=== PATIENT | female | born 1950 | race Caucasian/White ===

== ENCOUNTER 2016-05-06 11:09 | Emergency (ER) | payer MEDICARE, OTHER ==
[~2016-05-06] VITALS: Ht 157.5 cm; Wt 86.0 kg
[~2016-05-06 11:09] MED LIST: ALBU0.086 INH; ALBU1AER INH; COLE625 PO; MEDR4PAK3 PO; PROZ20CA11 PO; ZITH250T PO
[2016-05-06 11:41] VITALS: BP 145/81; PULSE 101; RESP 16; TEMP 98.7; O2SAT 99
[2016-05-06] MEDS ORDERED: SODIUM CHLOR 0.9% 1000 ML INJ 1,000 ML IV SCH (12:18)
[2016-05-06] MEDS ORDERED: WELC625T2 PO (12:21)
[2016-05-06] MEDS ORDERED: ALBUAER3 INH (12:21)
[2016-05-06] MEDS ORDERED: PROZ20CA11 PO (12:21)
--- NOTE | 2016-05-06 12:25 | PD ---
HPI Chief Complaint: Abdominal Pain Time Seen by Provider: 12:06 Travel History International Travel<30 days: No Contact w/Intl Traveler<30days: No Traveled to known affect area: No History of Present Illness HPI 65-year-old female complains of low back pain, right low quadrant abdominal pain and nausea and abdominal bloating. Patient states that symptoms started about 3 weeks ago. Patient states that she has nausea but no vomiting or diarrhea. Patient denies any dysuria or frequency. Patient denies any vaginal discharge or bleeding. Patient states that she status post cholecystectomy. Patient has history of COPD and quit smoking about 5 weeks ago. Patient denies any fever chills. Patient denies any weakness or numbness of lower extremity. On a scale of 1-10 the pain is a 5. Patient states that she was seen by personal physician last week and diagnosis with possible UTI. Patient was given prescription for Cipro which she took for 2 days. Patient states that she was advised by her physician to stop taking Cipro. PFSH Past Medical History Asthma: Yes Depression: Yes High Cholesterol: Yes COPD: Yes Diminished Hearing: No GERD: Yes Respiratory: Yes (copd) Tetanus Vaccination: > 5 Years ?: Not Menopausal: Yes : 2 Para: 2 Past Surgical History Cholecystectomy: Yes (2012) Ear Surgery: Yes (BILATERAL EAR TUBES PLACED 09/22/14) Genitourinary Surgery: Yes (BLADDER TUCK 2012) Tonsillectomy: Yes Social History Alcohol Use: Yes (SOCIALLY) Tobacco Use: No (1 PK/WEEK) Substance Use: No Allergies-Medications (Allergen,Severity, Reaction): Coded Allergies: Novocain (Unverified Allergy, Unknown, 05/06/16) CHILD Reported Meds & Prescriptions Reported Meds & Active Scripts Active Reported Proair Hfa 8.5 GM Inh (Albuterol Sulfate) 90 Mcg/Act Aer 2 Puff INH Q4-6H PRN 108 mcg/actuation Prozac (Fluoxetine HCl) 20 Mg Cap 20 Mg PO DAILY Welchol (Colesevelam HCl) 625 Mg Tab 3,750 Mg PO DAILY Review of Systems General / Constitutional: No: Fever Eyes: No: Visual changes HENT: No: Headaches Cardiovascular: No: Chest Pain or Discomfort Respiratory: No: Shortness of Breath Gastrointestinal: Positive: Nausea, Abdominal Pain Genitourinary: No: Dysuria Musculoskeletal: No: Pain Skin: No Rash Neurologic: No: Weakness Psychiatric: No: Depression Endocrine: No: Polydipsia Hematologic/Lymphatic: No: Easy Bruising Physical Exam Narrative GENERAL: Well-nourished, well-developed patient. SKIN: Warm and dry. HEAD: Normocephalic. EYES: No scleral icterus. No injection or drainage. NECK: Supple, trachea midline. No JVD or lymphadenopathy. CARDIOVASCULAR: Regular rate and rhythm without murmurs, gallops, or rubs. RESPIRATORY: Breath sounds equal bilaterally. No accessory muscle use. Mild expiratory wheezes. GASTROINTESTINAL: Abdomen soft, nondistended. Patient has mild tenderness on palpation right low quadrant of the abdomen. No rebound tenderness. No mass. MUSCULOSKELETAL: No cyanosis, or edema. BACK: Mild tenderness on palpation lumbar area, without obvious deformity. No CVA tenderness. Neurologic exam normal. Data Data Last Documented VS Vital Signs Date Time Temp Pulse Resp B/P Pulse Ox O2 Delivery O2 Flow Rate FiO2 05/06/16 13:45 97 16 134/71 94 Room Air 05/06/16 11:41 98.7 Orders Complete Blood Count With Diff (05/06/16 12:18) Comprehensive Metabolic Panel (05/06/16 12:18) Lipase (05/06/16 12:18) Prothrombin Time / Inr (Pt) (05/06/16 12:18) Act Partial Throm Time (Ptt) (05/06/16 12:18) Urinalysis - C+S If Indicated (05/06/16 12:18) Ct Abd/Pel W Iv Contrast(Rout) (05/06/16 12:18) Iv Access Insert/Monitor (05/06/16 12:18) Ecg Monitoring (05/06/16 12:18) Oximetry (05/06/16 12:18) Ondansetron Inj (Zofran Inj) (05/06/16 12:30) Sodium Chlor 0.9% 1000 Ml Inj (Ns 1000 M (05/06/16 12:18) Urine Culture (05/06/16 12:30) Iohexol 350 Inj (Omnipaque 350 Inj) (05/06/16 13:26) Labs Laboratory Tests Test 05/06/16 12:30 White Blood Count 8.9 TH/MM3 Red Blood Count 4.27 MIL/MM3 Hemoglobin 12.8 GM/DL Hematocrit 38.0 % Mean Corpuscular Volume 89.0 FL Mean Corpuscular Hemoglobin 30.0 PG Mean Corpuscular Hemoglobin 33.8 % Concent Red Cell Distribution Width 12.1 % Platelet Count 382 TH/MM3 Mean Platelet Volume 6.8 FL Neutrophils (%) (Auto) 87.8 % Lymphocytes (%) (Auto) 8.1 % Monocytes (%) (Auto) 3.6 % Eosinophils (%) (Auto) 0.1 % Basophils (%) (Auto) 0.4 % Neutrophils # (Auto) 7.9 TH/MM3 Lymphocytes # (Auto) 0.7 TH/MM3 Monocytes # (Auto) 0.3 TH/MM3 Eosinophils # (Auto) 0.0 TH/MM3 Basophils # (Auto) 0.0 TH/MM3 CBC Comment DIFF FINAL Differential Comment Prothrombin Time 10.0 SEC Prothromb Time International 0.9 RATIO Ratio Activated Partial 23.6 SEC Thromboplast Time Urine Collection Type VOIDED Urine Color YELLOW Urine Turbidity CLEAR Urine pH 5.5 Urine Specific [place] 1.020 Urine Protein NEG mg/dL Urine Glucose (UA) 500 mg/dL Urine Ketones NEG mg/dL Urine Occult Blood NEG Urine Nitrite NEG Urine Bilirubin NEG Urine Leukocyte Esterase NEG Urine RBC 0-3 /hpf Urine WBC 3-5 /hpf Urine WBC Clumps RARE Urine Squamous Epithelial 0-5 /hpf Cells Urine Bacteria RARE /hpf Microscopic Urinalysis Comment CULTURE INDICATED Sodium Level 143 MEQ/L Potassium Level 4.3 MEQ/L Chloride Level 109 MEQ/L Carbon Dioxide Level 24.8 MEQ/L Anion Gap 9 MEQ/L Blood Urea Nitrogen 13 MG/DL Creatinine 0.81 MG/DL Estimat Glomerular Filtration 71 ML/MIN Rate Random Glucose 183 MG/DL Calcium Level 9.1 MG/DL Total Bilirubin 0.2 MG/DL Aspartate Amino Transf 12 U/L (AST/SGOT) Alanine Aminotransferase 26 U/L (ALT/SGPT) Alkaline Phosphatase 81 U/L Total Protein 7.3 GM/DL Albumin 3.6 GM/DL Lipase 142 U/L [facility] Medical Decision Making Medical Screen Exam Complete: Yes Emergency Medical Condition: Yes Interpretation(s) [address] scan abdomen pelvis negative acute pathology. CBC within normal limit. WBC 8.9 with 87 neutrophil. CMP within normal limit. UA positive WBC and bacteria. Differential Diagnosis Differential diagnoses including UTI, pyelonephritis, nephrolithiasis, colitis, appendicitis, ovarian cyst, ovarian torsion. Narrative Course 65-year-old female with right low quadrant abdominal pain, bloating, nausea and low back pain. Normal saline solution 125 cc an hour. Diagnosis Primary Impression: UTI (urinary tract infection) Qualified Code: N30.00 - Acute cystitis without hematuria Additional Impression: Abdominal colic Patient Instructions: General Instructions Additional Instructions: Take medications as directed. Follow-up with personal physician. Return if worse. Med/Other Pt SpecificInfo: Prescription(s) given Scripts Dicyclomine (Bentyl)20 Mg Tab20 Mg PO TID #21 TAB Ref 0 Prov:Gerardo Harrington MD 05/06/16 Sulfamethoxazole-Trimethoprim (Bactrim DS)800-160 Mg Tab1 Tab PO BID #14 TAB Prov:Gerardo Harrington MD 05/06/16 Disposition: 01 DISCHARGE HOME Condition: Stable Gerardo Harrington MD May 06, 2016 12:25
[2016-05-06] MEDS ORDERED: ONDANSETRON HCL 4 MG/2 ML VIAL IVP ONE (12:30)
[2016-05-06 12:37] VITALS: RESP 16; O2SAT 94
[2016-05-06 12:44] VITALS: BP 135/70; PULSE 101; RESP 16; O2SAT 97
[2016-05-06 12:50] LABS: AUTOMATED NEUTROPHIL # 7.9 TH/MM3 (1.8-7.7); BASOPHIL % 0.4 % (0.0-2.0); EOSINOPHIL % 0.1 % (0.0-4.0); HEMO FLAGS DIFF FINAL; LYMPH % 8.1 % (9.0-44.0); LYMPHOCYTE # 0.7 TH/MM3 (1.0-4.8); MEAN CORPUSCULAR HGB CONC 33.8 % (32.0-36.0); MONO % 3.6 % (0.0-8.0); NEUT % 87.8 % (16.0-70.0); PLATELET COUNT 382 TH/MM3 (150-450); RED BLOOD COUNT 4.27 MIL/MM3 (4.00-5.30); RED CELL DISTRIBUTION WIDTH 12.1 % (11.6-17.2); WHITE BLOOD COUNT 8.9 TH/MM3 (4.0-11.0)
[2016-05-06 12:51] LABS: BLOOD, URINE NEG (NEG); GLUCOSE,URINE 500 mg/dL (NEG); KETONE, URINE NEG (NEG); NITRITE,URINE NEG (NEG); PH, URINE 5.5 (5.0-8.5)
[2016-05-06 12:58] LABS: METHOD OF COLLECTION VOIDED; URINE COLOR YELLOW (YELLW/STRAW)
[2016-05-06 12:59] LABS: CHLORIDE 109 MEQ/L (98-107); POTASSIUM 4.3 MEQ/L (3.5-5.1); RBC, URINE 0-3 /hpf (0-3); SODIUM (NA) 143 MEQ/L (136-145); SQUAMOUS EPITHELIAL CELL URINE 0-5 /hpf (0-5)
[2016-05-06 13:00] LABS: BACTERIA, URINE RARE /hpf; COMMENT (UR) CULTURE INDICATED; CULTURE IF INDICATED CULTURE INDICATED
[2016-05-06 13:02] LABS: ANION GAP 9 MEQ/L (5-15); BICARBONATE 24.8 MEQ/L (21.0-32.0)
[2016-05-06 13:03] LABS: APTT (PATIENT) 23.6 SEC (24.3-30.1); BLOOD UREA NITROGEN 13 MG/DL (7-18); INTERNATIONAL NORMALIZED RATIO 0.9 RATIO
[2016-05-06 13:05] LABS: ALT (GPT) 26 U/L (10-53); AST (GOT) 12 U/L (15-37)
[2016-05-06 13:06] LABS: GLOMERULAR FILTRATION RATE 71 ML/MIN (>89)
[2016-05-06 13:07] LABS: TOTAL BILIRUBIN ADULT 0.2 MG/DL (0.2-1.0)
[2016-05-06 13:08] LABS: ALKALINE PHOSPHATASE 81 U/L (45-117)
[2016-05-06] MEDS ORDERED: IOHEXOL 350 MG/ML 10 ML VIAL (for RAD DIAG) IV ONE (13:26)
[2016-05-06 13:45] VITALS: BP 134/71; PULSE 97; RESP 16; O2SAT 94
--- NOTE | 2016-05-06 13:53 | RADHPO ---
EXAM DATE/TIME: 05/06/2016 13:20 [place] COMPARISON: No previous studies available for comparison. INDICATIONS : Right lower quadrant pain and abdominal distention. IV CONTRAST: 95 cc Omnipaque 350 (iohexol) IV ORAL CONTRAST: No oral contrast ingested. RADIATION DOSE: 20.46 CTDIvol (mGy) MEDICAL HISTORY : Hypercholesterolemia. Chronic obstructive pulmonary disease. Gastroesophageal reflux disease. SURGICAL HISTORY : Cholecystectomy. Bladder tuck. ENCOUNTER: Initial ACUITY: 3 weeks PAIN SCALE: 9/10 LOCATION: Right lower quadrant TECHNIQUE: Volumetric scanning of the abdomen and pelvis was performed. Using automated exposure control and ad justment of the mA and/or kV according to patient size, radiation dose was kept as low as reasonably achievable to obtain optimal diagnostic quality images. FINDINGS: Lung bases are clear. The liver is free of focal defects. Spleen, pancreas, and adrenals are unrema rkable. Small cyst is seen projecting off the mid portion of the left kidney. Region of the cecum and terminal ileum unremarkable. In the pelvis there is no evidence for diverticulitis. Bladder is decompressed. There is no adnexal mass. Abdominal wall is intact. CONCLUSION: Negative CT scan of abdomen and pelvis. I do not see an etiology for the patient's right lower quadra nt pain. There is a normal appendix. There is no evidence for colitis. Emir Johnston MD FACR on May 06, 2016 at 13:45 Board Certified Radiologist. This report was verified electronically.
[2016-05-06] MEDS ORDERED: BACT800T5 PO (14:44)
[2016-05-06] MEDS ORDERED: BENT20TA PO (14:44)
[2016-05-06] MEDS ORDERED: LEVOFLOXACIN 750 MG TAB PO ONE (14:45)
[2016-05-06 15:12] VITALS: BP 137/79; PULSE 86; RESP 18; O2SAT 96
== END 2016-05-06 15:25 | disposition home or self-care (01) ==
LOC: PHED 11:09
DX: N30.00 Acute cystitis without hematuria (principal); R10.84 Generalized abdominal pain; R11.0 Nausea; R14.0 Abdominal distension (gaseous); M54.5 Low back pain; E78.00 Pure hypercholesterolemia, unspecified; Z87.09 Personal history of other diseases of the respiratory system; Z87.891 Personal history of nicotine dependence; Z86.59 Personal history of other mental and behavioral disorders; Z87.19 Personal history of other diseases of the digestive system
CPT/HCPCS: 74177; 80053; 81001; 83690; 85025; 85610; 85730; 87086; 96361; 96374; 99284; J2405; J7030; Q9967